=== PATIENT | male | born 1945 | race Caucasian/White ===

== ENCOUNTER 2020-07-19 08:35 | Emergency (ER) | payer OTHER ==
[2020-07-19 08:44] VITALS: RESP 16; TEMP 97.8
[2020-07-19] MEDS ORDERED: ACETAMINOPHEN TAB 325 MG TAB PO STA (09:01)
--- NOTE | 2020-07-19 09:02 | ED ---
Fall HPI - General Chief Complaint: Fall Stated Complaint: Fall Source: patient Mode of arrival: EMS - History of Present Illness Initial Comments: Patient is a 75-year-old male with past medical history of prostate cancer presents emergency department after he sustained a fall. 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 Patient fell onto his left chest. Patient denies any head trauma. No neck pain. Patient's was able to get up and ambulate after the incident however he did have significant pain in his "left arm pain". He does not take any blood thinners. Denied any shortness of breath. Denies pain in his upper or lower extremities. No pelvic pain. She denies any abdominal pain. States that he did not have a syncopal episode. He did not take any medications for her symptoms. No other alleviating, precipitating or modifying factors - Related Data Home Medications Medication Instructions Recorded Confirmed Solifenacin Succinate 5 mg PO HS 07/19/20 07/19/20 Tamsulosin [Flomax] 0.4 mg PO HS 07/19/20 07/19/20 Previous Rx's Medication Instructions Recorded Acetaminophen-Codeine 300-30mg 1 tab PO Q4H PRN 3 Days #18 tablet 07/19/20 [Tylenol w/codeine #3] Allergies Allergy/AdvReac Type Severity Reaction Status Date / Time aspirin Allergy Unknown Verified 07/19/20 09:58 Review of Systems ROS Statement: Those systems with pertinent positive or pertinent negative responses have been documented in the HPI. ROS Other: All systems not noted in ROS Statement are negative. Past Medical History Past Medical History: Prostate Disorder History of Any Multi-Drug Resistant Organisms: None Reported Past Surgical History: No Surgical Hx Reported Past Psychological History: No Psychological Hx Reported Smoking Status: Never smoker Past Alcohol Use History: None Reported Past Drug Use History: None Reported General Exam Limitations: no limitations Course Vital Signs 07/19/20 08:40 Temperature 97.8 F Pulse Rate 84 Respiratory 16 Rate Blood Pressure 166/98 O2 Sat by Pulse 95 Oximetry Medical Decision Making - Medical Decision Making Upon arrival patient was placed into room 16. A thorough history and physical was performed here patient does have some bruising over his left shoulder. Left shoulder and chest CT was performed. Chest CT demonstrates multiple left-sided rib fractures 3 through 8. No pneumothorax or pulmonary contusion. Left shoulder x-ray demonstrates grade 3 separation of the left before meals joint. Of the multiple rib fractures I did discuss the case with Dr. Foley. She states that as long as the patient's oxygenation is okay and his pain is under control, the patient will be discharged home. This is discussed with the patient. Patient does want to leave at this time. He will be given an incentive spirometer and a #3 starter pack. I also provided him with a prescription for Tylenol 3. He is instructed to take his medication when he is not driving. He must follow up with his primary care doctor in 2-4 days. Recommended he see orthopedics for the AC separation. He has any new or worsening symptoms to include worsening shortness of breath, fevers or chest pain to return to the emergency room. Patient understood this. He is given written and verbal discharge instructions and discharged home in stable condition Disposition Clinical Impression: Fall, Multiple fractures of ribs, left side, initial encounter for closed fracture Disposition: HOME SELF-CARE Condition: Stable Instructions (If sedation given, give patient instructions): Rib Fracture (ED) Additional Instructions: Please follow-up with a primary care doctor in 2-4 days. Use the IS 10 times per day. Return to the emergency room and for worsening pain, shortness of breath or fevers. Prescriptions: Acetaminophen-Codeine 300-30mg [Tylenol w/codeine #3] 1 tab PO Q4H PRN 3 Days #18 tablet PRN Reason: Pain Is patient prescribed a controlled substance at d/c from ED?: Yes When asked, does pt state using other controlled substances?: No If prescribed controlled substance>3 days was MAPS reviewed?: Prescribed <3 Days If opioid is for acute pain is fill amount 7 days or less?: Yes If Rx opioid, was Start Talking consent form obtained?: Yes Referrals: Nonstaff,Physician [Primary Care Provider] - 1-2 days Time of Disposition: 10:54
--- NOTE | 2020-07-19 09:52 | CT ---
EXAMINATION TYPE: CT chest wo con DATE OF EXAM: 07/19/2020 COMPARISON: None HISTORY: Fall, left-sided chest pain CT DLP: 312.3 mGycm, Automated exposure control for dose reduction was used. CONTRAST: Performed injected with 0 mL of Isovue 300. TECHNIQUE: Axial images were obtained at 5 mm thick sections. Reconstructed images are reviewed on [employer] computer in the coronal plane. FINDINGS: Portion of the thyroid visualized is normal. No suspicious lung nodules are evident. There is some mild atelectatic changes along the posterior la teral left midlung. No pneumothorax is evident. No enlarged mediastinal or hilar adenopathy is evident. Scattered small lymph nodes are within the mediastinum. The ascending aorta diameter at the level of the main pulmonary artery is 3.8 cm. The m ain pulmonary artery diameter at the bifurcation is 2.4 cm. Mild coronary artery calcification is pre sent. Third and fourth posterior lateral left upper rib fractures are evident. There is a buckle fracture o f the fifth posterior lateral rib. Fracture of the posterior lateral left sixth rib is present. Subtl e cortical fractures of the posterior lateral eighth rib, and posterior left seventh rib. No flail ch est is evident Limited CT sections are obtained through the upper abdomen. Cholelithiasis is present. IMPRESSIONS: 1. Multiple left-sided left rib fractures 3 through 8 discussed above.
--- NOTE | 2020-07-19 10:04 | XR ---
EXAMINATION TYPE: XR shoulder complete LT DATE OF EXAM: 07/19/2020 CLINICAL HISTORY: pain COMPARISON: NONE TECHNIQUE: Three views of the left shoulder are obtained. FINDINGS: There is elevation of the distal clavicle relative to the acromion and widening of the richi coclavicular space compatible with grade 3 AC joint separation. Glenohumeral joint is intact. No evid ence of fracture. Deformity of left ribs 3 through 7. IMPRESSION: 1. Grade 3 separation left AC joint. 2. Multiple left-sided rib fractures identified. Correlate with CT of the chest
[2020-07-19] MEDS ORDERED: ACET/COD 300 MG/30 MG STARTER PACK 6 TAB BTL PO STA (10:45)
[2020-07-19 11:17] VITALS: BP 158/74; PULSE 79
== END 2020-07-19 11:16 | disposition home or self-care (01) ==
LOC: EC 08:35
DX: S22.42XA Multiple fractures of ribs, left side, initial encounter for closed fracture (principal); Z88.6 Allergy status to analgesic agent; Z85.46 Personal history of malignant neoplasm of prostate; W17.89XA Other fall from one level to another, initial encounter
CPT/HCPCS: 71250; 99284